=== PATIENT | female | born 1995 | race Hispanic/Latino ===

== ENCOUNTER 2018-05-03 11:00 | Emergency (ER) | payer BC, SELFPAY ==
--- NOTE | 2018-05-03 11:55 | RAD ---
TWO VIEWS CHEST: History: Cough, congestion. FINDINGS: Two views of the chest show normal sized cardiomediastinal silhouette. There is no evidence of consol idation, mass, or pleural effusion. The bones are unremarkable. IMPRESSION: No evidence of acute cardiopulmonary disease. POS: [facility]
== END 2018-05-03 12:03 | disposition home or self-care (01) ==
LOC: ERS 11:00
DX: J30.9 Allergic rhinitis, unspecified (principal)
CPT/HCPCS: 71046